=== PATIENT | female | born 1960 | race Caucasian/White ===

== ENCOUNTER → 2022-02-03 | Outpatient (CLI) | payer BC ==
[~2022-02-03] MED LIST: DIOVAN160 M1 PO; FLEXERIL 1010 MG/TAB PO; INDOCIN25 MG PO; LORTAB 5/500 501 TAB PO
== END ==
LOC: MC.RAD 07:48
DX: Z12.31 Encounter for screening mammogram for malignant neoplasm of breast (principal)

== ENCOUNTER → 2023-01-05 | Outpatient (CLI) | payer BC | LOC: COL.RAD 08:29 | DX: D25.9 Leiomyoma of uterus, unspecified (principal); N95.0 Postmenopausal bleeding ==

== ENCOUNTER → 2023-02-08 | Outpatient (CLI) | payer BC | LOC: MC.RAD 13:05 | DX: Z12.31 Encounter for screening mammogram for malignant neoplasm of breast (principal) ==

== ENCOUNTER → 2024-03-06 | Outpatient (CLI) | payer MEDICARE, OTHER | LOC: MC.RAD 11:06 | DX: Z12.31 Encounter for screening mammogram for malignant neoplasm of breast (principal); N63.20 Unspecified lump in the left breast, unspecified quadrant ==